=== PATIENT | female | born 1995 | race Two or more races ===

== ENCOUNTER 2017-06-22 00:42 | Emergency (ER) | payer SELFPAY ==
[2017-06-22] MEDS: IV NORMAL SALINE 1000ML BAG 1,000 ML IV (01:33)
[2017-06-22] MEDS: METOCLOPRAMIDE HCL 10 MG/2 ML VIAL. IV (01:34)
[2017-06-22] MEDS: KETOROLAC 30 MG/ML INJ. IV (01:34)
[2017-06-22 02:43] LABS: INFLUENZA A PATIENT NEGATIVE (NEGATIVE); INFLUENZA B PATIENT NEGATIVE (NEGATIVE); OBC FLU VALID
[2017-06-22 03:02] LABS: URINE HCG POC HCG NEGATIVE (Negative)
[2017-06-22 03:11] LABS: BILIRUBIN,URINE NEGATIVE (NEG); CLARITY,URINE CLEAR; COLOR,URINE YELLOW; GLUCOSE,URINE NEGATIVE (NEG); NITRITE,URINE NEGATIVE (NEG); PROTEIN,URINE NEGATIVE (NEG-TRACE); UROBILINOGEN,URINE 0.2 mg/dL (0.2 mg/dL)
[2017-06-22 03:24] LABS: BACTERIA,URINE FEW /HPF (0-FEW); RBC,URINE OCC /HPF (0-2); SQUAMOUS EPITHELIAL CELL,UR MOD /LPF; WBC,URINE OCC /HPF (0-4)
== END 2017-06-22 03:56 | disposition home or self-care (01) ==
LOC: ER 00:42
DX: J06.9 Acute upper respiratory infection, unspecified (principal); B97.89 Other viral agents as the cause of diseases classified elsewhere; R30.0 Dysuria
CPT/HCPCS: 81001; 81025; 87804; 87804-59; 96361; 96374; 96375; 99284-25; J1885; J2765; J7030